=== PATIENT | male | born 1990 | race Caucasian/White ===

== ENCOUNTER 2016-12-11 09:49 | Emergency (ER) | payer MEDICAID ==
[~2016-12-11] VITALS: Ht 180.3 cm; Wt 73.0 kg
[2016-12-11] MEDS ORDERED: METH500T PO (09:54)
[2016-12-11] MEDS ORDERED: HYDR-523 PO (09:54)
[2016-12-11] MEDS ORDERED: HYDROCODONE/ACETAMINOPHEN 5/325MG TABLET PO ONE (12:30)
[2016-12-11] MEDS ORDERED: KETOROLAC 60MG/2ML VIAL IM ONE (13:30)
[2016-12-11 13:54] VITALS: BP 168/95
== END 2016-12-11 14:41 | disposition home or self-care (01) ==
LOC: ER 12:01
DX: S62.334A Displaced fracture of neck of fourth metacarpal bone, right hand, initial encounter for closed fracture (principal); F12.10 Cannabis abuse, uncomplicated; Z88.8 Allergy status to other drugs, medicaments and biological substances; Z88.5 Allergy status to narcotic agent; Y04.8XXA Assault by other bodily force, initial encounter; Y93.89 Activity, other specified; Y92.89 Other specified places as the place of occurrence of the external cause; Y99.8 Other external cause status
CPT/HCPCS: 29125; 73090; 73110; 73130; 96372; 99284; J1885